=== PATIENT | female | born 1940 | race Caucasian/White ===

== ENCOUNTER 2019-10-02 08:45 | Outpatient (CLI) | payer MEDICARE, SELFPAY ==
[2019-10-02 09:00] LABS: Basophils Absolute Auto 0.05 K/mm3 (0.00-0.10); Basophils Percent Auto 0.8 % (0.0-1.0); Eosinophils Absolute Auto 0.12 K/mm3 (0.02-0.50); Eosinophils Percent Auto 1.8 % (1.0-6.0); Hematocrit 40.4 % (35.0-42.0); Hemoglobin 13.4 g/dL (11.7-13.8); Immature Granulocyte Absolute 0.03 K/mm3 (0.00-0.00); Immature Granulocyte Percent A 0.5 % (0.0-0.0); Lymphocytes Absolute Auto 2.04 K/mm3 (1.10-4.50); Lymphocytes Percent Auto 31.4 % (18.0-42.0); Mean Corpuscular HGB Conc 33.2 g/dL (32.0-36.0); Mean Corpuscular Hemoglobin 29.4 pg (27.0-31.0); Mean Corpuscular Volume 88.6 fL (78.0-102.0); Mean Platelet Volume 9.1 fl (9.2-11.8); Monocytes Absolute Auto 0.38 K/mm3 (0.10-0.90); Monocytes Percent Auto 5.9 % (2.0-11.0); Neutrophils Absolute Auto 3.9 K/mm3 (1.7-7.2); Neutrophils Percent Auto 59.6 % (50.0-70.0); Platelet Count Result 261 K/mm3 (150-420); Red Blood Count 4.56 M/mm3 (4.20-5.40); Red Cell Distribution Width 13.2 % (11.6-14.4); White Blood Count 6.5 K/mm3 (4.8-10.8)
[2019-10-02 10:12] LABS: Alanine Aminotransferase 28 U/L (14-59); Alkaline Phosphatase 79 U/L (46-116); Anion Gap 12.3 mmol/L (7-16); Aspartate Amino Transferase 25 U/L (15-37); Bilirubin,Total 0.4 mg/dL (0.00-1.00); Blood Urea Nitrogen 18 mg/dL (7-18); Calcium 9.4 mg/dL (8.5-10.1); Carbon Dioxide 29 mmol/L (21-32); Chloride 103 mmol/L (98-108); Cholesterol 184 mg/dL (0-200); Estimated Glomerular Filt Rate 38; Glucose 89 mg/dL (70-99); HDL Direct 49 mg/dL (40-60); LDL Cholesterol Calculated 109 mg/dL (<130); Osmolality Calculated 290 mOsm/kg (285-295); Potassium 4.3 mmol/L (3.5-5.1); Sodium 140 mmol/L (136-145); Total Protein 7.2 g/dL (6.4-8.2); Triglycerides 132 mg/dL (0-150)
== END 2019-10-02 08:46 | disposition home or self-care (01) ==
PROVIDERS: PCP Nurse Practitioner Family; Visit Provider Nurse Practitioner Family
DX: E78.5 Hyperlipidemia, unspecified (principal); I10 Essential (primary) hypertension
CPT/HCPCS: 36415; 80053; 80061; 85025

== ENCOUNTER 2019-10-31 08:14 | Outpatient (CLI) | payer MEDICARE, SELFPAY ==
[2019-10-31 09:08] LABS: Anion Gap 9.7 mmol/L (7-16); Blood Urea Nitrogen 14 mg/dL (7-18); Calcium 9.8 mg/dL (8.5-10.1); Carbon Dioxide 31 mmol/L (21-32); Chloride 104 mmol/L (98-108); Estimated Glomerular Filt Rate 38; Glucose 95 mg/dL (70-99); Osmolality Calculated 290 mOsm/kg (285-295); Potassium 4.7 mmol/L (3.5-5.1); Sodium 140 mmol/L (136-145)
== END 2019-10-31 08:15 | disposition home or self-care (01) ==
LOC: CHSLAB 08:15
PROVIDERS: PCP Nurse Practitioner Family; Visit Provider Nurse Practitioner Family
DX: R79.89 Other specified abnormal findings of blood chemistry (principal)
CPT/HCPCS: 36415; 80048

== ENCOUNTER 2019-12-11 07:54 | Outpatient (CLI) | payer MEDICARE, SELFPAY ==
[2019-12-11 10:07] LABS: Anion Gap 9 mmol/L (8-16); Blood Urea Nitrogen 15 mg/dL (7-18); Calcium 9.7 mg/dL (8.5-10.1); Carbon Dioxide 29 mmol/L (21-32); Chloride 104 mmol/L (98-108); Estimated Glomerular Filt Rate 34; Glucose 94 mg/dL (70-99); Osmolality Calculated 294 mOsm/kg (285-295); Potassium 4.5 mmol/L (3.5-5.1); Sodium 142 mmol/L (136-145)
== END 2019-12-11 07:55 | disposition home or self-care (01) ==
LOC: CHSLAB 07:56
PROVIDERS: PCP Nurse Practitioner Family; Visit Provider Nurse Practitioner Family
DX: R79.89 Other specified abnormal findings of blood chemistry (principal)
CPT/HCPCS: 36415; 80048

== ENCOUNTER 2019-12-21 07:01 | Outpatient (CLI) | payer MEDICARE, SELFPAY ==
--- NOTE | ~2019-12-21 | US_ITS ---
EXAMINATION: US retroperitoneal comp DATE: 12/21/2019 08:10 INDICATION: Abnormal results of kidney function test TECHNIQUE: Multiple grayscale and Doppler ultrasound images of the kidneys were obtained. COMPARISON: None. FINDINGS: The right kidney measures 9.0 x 5.0 x 8.1 cm. Cysts of the right kidney upper pole measure up to 2.1 cm. The left kidney measures 8.0 x 5.0 x 5.0 cm. The kidneys demonstrate normal parenchymal echogenicity. There is no hydronephrosis. The bladder is decompressed. IMPRESSION: 1. Normal kidneys without hydronephrosis. Reviewed, dictated and finalized at location A.
[2019-12-21 07:23] LABS: Basophils Absolute Auto 0.04 K/mm3 (0.00-0.10); Basophils Percent Auto 0.7 % (0.0-1.0); Eosinophils Absolute Auto 0.13 K/mm3 (0.02-0.50); Eosinophils Percent Auto 2.2 % (1.0-6.0); Hematocrit 43.5 % (35.0-42.0); Hemoglobin 14.2 g/dL (11.7-13.8); Immature Granulocyte Absolute 0.02 K/mm3 (0.00-0.00); Immature Granulocyte Percent A 0.3 % (0.0-0.0); Lymphocytes Absolute Auto 1.52 K/mm3 (1.10-4.50); Lymphocytes Percent Auto 25.3 % (18.0-42.0); Mean Corpuscular HGB Conc 32.6 g/dL (32.0-36.0); Mean Corpuscular Hemoglobin 29.1 pg (27.0-31.0); Mean Corpuscular Volume 89.1 fL (78.0-102.0); Monocytes Absolute Auto 0.35 K/mm3 (0.10-0.90); Monocytes Percent Auto 5.8 % (2.0-11.0); Neutrophils Percent Auto 65.7 % (50.0-70.0); Platelet Count Result 309 K/mm3 (150-420); Red Blood Count 4.88 M/mm3 (4.20-5.40); Red Cell Distribution Width 12.8 % (11.6-14.4)
[2019-12-21 08:01] LABS: Alanine Aminotransferase 29 U/L (14-59); Albumin Level 4.4 g/dL (3.4-5.0); Anion Gap 8 mmol/L (8-16); Blood Urea Nitrogen 13 mg/dL (7-18); Carbon Dioxide 28 mmol/L (21-32); Chloride 105 mmol/L (98-108); Creatine Kinase 79 U/L (26-192); Estimated Glomerular Filt Rate 35; Glucose 108 mg/dL (70-99); Osmolality Calculated 293 mOsm/kg (285-295); Phosphorus 3.8 mg/dL (2.6-4.7); Potassium 4.2 mmol/L (3.5-5.1); Sodium 141 mmol/L (136-145)
[2019-12-21 08:25] LABS: Erythrocyte Sedimentation Rate 18 mm/hr (0-20)
[2019-12-21 09:59] LABS: Add Urine Microscopic? YES; Appearance Urine Clear (Clear); Bilirubin Urine Negative (Negative); Blood Urine 1+ (Negative); Color Urine Yellow (Yellow); Glucose Urine UA Negative (Negative); Ketones Urine Negative (Negative); Leukocyte Esterase Ur Negative (Negative); Nitrate Urine Negative (Negative); Protein Urine Negative (Negative); Urobilinogen Urine 0.2 mg/dL (0.2-1.0)
[2019-12-21 10:05] LABS: RBC Urine 0-2 /hpf (0-2)
[2019-12-21 10:06] LABS: Bacteria Urine Trace /hpf; Squamous Epithelial Cell Urine Occasional /hpf (Few); WBC Urine 0-3 /hpf (0-3)
[2019-12-21 10:26] LABS: Creatinine Urine 77.63 mg/dL (40-278); Total Protein Urine Random 9.9 mg/dL (0.0-11.9)
[2019-12-25 10:40] LABS: Total Volume 24 Hour Urine 1600 ml
[2019-12-26 13:35] LABS: Complement Total CH50 >60 U/mL (31-60)
[2019-12-26 21:27] LABS: Complement C3 180 mg/dL (83-193)
== END 2019-12-21 07:02 | disposition home or self-care (01) ==
PROVIDERS: PCP Nurse Practitioner Family; Visit Provider Internal Medicine Nephrology
DX: R94.4 Abnormal results of kidney function studies (principal); E78.5 Hyperlipidemia, unspecified
CPT/HCPCS: 36415; 76770; 80069; 81001; 81050; 82550; 82570; 84156; 84460; 84540; 85025; 85652; 86038; 86160; 86162; 86334; 86335

== ENCOUNTER 2020-02-29 07:38 | Outpatient (CLI) | payer MEDICARE, SELFPAY ==
[2020-02-29 07:54] LABS: Creatinine Urine 68.25 mg/dL (40-278); Total Protein Urine Random 10.1 mg/dL (0.0-11.9)
[2020-02-29 08:48] LABS: Anion Gap 9 mmol/L (8-16); Blood Urea Nitrogen 15 mg/dL (7-18); Calcium 9.4 mg/dL (8.5-10.1); Carbon Dioxide 29 mmol/L (21-32); Chloride 103 mmol/L (98-108); Estimated Glomerular Filt Rate 39; Glucose 91 mg/dL (70-99); Osmolality Calculated 292 mOsm/kg (285-295); Phosphorus 3.7 mg/dL (2.6-4.7); Potassium 4.3 mmol/L (3.5-5.1); Sodium 141 mmol/L (136-145)
== END 2020-02-29 07:39 | disposition home or self-care (01) ==
LOC: CHSLAB 07:40
PROVIDERS: PCP Nurse Practitioner Family; Visit Provider Internal Medicine Nephrology
DX: R94.4 Abnormal results of kidney function studies (principal)
CPT/HCPCS: 36415; 80069; 82570; 84156

== ENCOUNTER 2020-06-21 10:09 | Outpatient (NON) | payer MEDICARE, SELFPAY | END 2020-06-21 10:10 | LOC: CHSLAB 10:12 | PROVIDERS: Visit Provider Nurse Practitioner Family | DX: R31.9 Hematuria, unspecified (principal) | CPT/HCPCS: 87086; 87088 ==

== ENCOUNTER 2020-08-22 08:24 | Outpatient (CLI) | payer MEDICARE, SELFPAY ==
[2020-08-22 08:57] LABS: Creatinine Urine 160.62 mg/dL (40-278); Total Protein Urine Random 23.3 mg/dL (0.0-11.9); Ur Ttl Prot Creatinine Ratio 0.15 mg/mg (0-0.20)
[2020-08-22 11:29] LABS: Albumin Level 3.9 g/dL (3.4-5.0); Anion Gap 9 mmol/L (8-16); Blood Urea Nitrogen 17 mg/dL (7-18); Calcium 9.6 mg/dL (8.5-10.1); Carbon Dioxide 29 mmol/L (21-32); Chloride 104 mmol/L (98-108); Estimated Glomerular Filt Rate 36; Glucose 94 mg/dL (70-99); Osmolality Calculated 295 mOsm/kg (285-295); Phosphorus 3.6 mg/dL (2.6-4.7); Potassium 4.5 mmol/L (3.5-5.1); Sodium 142 mmol/L (136-145)
== END 2020-08-22 08:25 | disposition home or self-care (01) ==
LOC: CHSLAB 08:27
PROVIDERS: PCP Nurse Practitioner Family; Visit Provider Internal Medicine Nephrology
DX: N18.32 Chronic kidney disease, stage 3b (principal)
CPT/HCPCS: 36415; 80069; 82570; 84156

== ENCOUNTER 2021-12-31 12:41 | Outpatient (CLI) | payer MEDICARE, SELFPAY ==
[2021-12-31 12:56] LABS: Basophils Absolute Auto 0.05 K/mm3 (0.00-0.10); Basophils Percent Auto 0.6 % (0.0-1.0); Eosinophils Absolute Auto 0.13 K/mm3 (0.02-0.50); Eosinophils Percent Auto 1.5 % (1.0-6.0); Hematocrit 42.9 % (35.0-42.0); Hemoglobin 14.2 g/dL (11.7-13.8); Immature Granulocyte Absolute 0.03 K/mm3 (0.00-0.00); Immature Granulocyte Percent A 0.4 % (0.0-0.0); Lymphocytes Absolute Auto 2.86 K/mm3 (1.10-4.50); Lymphocytes Percent Auto 33.7 % (18.0-42.0); Mean Corpuscular HGB Conc 33.1 g/dL (32.0-36.0); Mean Corpuscular Hemoglobin 29.3 pg (27.0-31.0); Mean Corpuscular Volume 88.5 fL (78.0-102.0); Mean Platelet Volume 9.3 fl (9.2-11.8); Monocytes Absolute Auto 0.47 K/mm3 (0.10-0.90); Monocytes Percent Auto 5.5 % (2.0-11.0); Neutrophils Absolute Auto 4.9 K/mm3 (1.7-7.2); Neutrophils Percent Auto 58.3 % (50.0-70.0); Platelet Count Result 277 K/mm3 (150-420); Red Blood Count 4.85 M/mm3 (4.20-5.40); Red Cell Distribution Width 12.8 % (11.6-14.4); White Blood Count 8.5 K/mm3 (4.8-10.8)
[2021-12-31 13:23] LABS: Alanine Aminotransferase 37 U/L (14-59); Alkaline Phosphatase 88 U/L (46-116); Anion Gap 12 mmol/L (8-16); Aspartate Amino Transferase 24 U/L (15-37); Bilirubin,Total 0.5 mg/dL (0.00-1.00); Blood Urea Nitrogen 17 mg/dL (7-18); Calcium 9.6 mg/dL (8.5-10.1); Carbon Dioxide 25 mmol/L (21-32); Chloride 102 mmol/L (98-108); Cholesterol 196 mg/dL (0-200); Estimated Glomerular Filt Rate 38; Glucose 96 mg/dL (70-99); HDL Direct 47 mg/dL (40-60); LDL Cholesterol Calculated 123 mg/dL (<130); Osmolality Calculated 289 mOsm/kg (285-295); Potassium 3.6 mmol/L (3.5-5.1); Sodium 139 mmol/L (136-145); Total Protein 7.3 g/dL (6.4-8.2); Triglycerides 132 mg/dL (0-150)
== END 2021-12-31 12:42 | disposition home or self-care (01) ==
LOC: CHSLAB 12:44
PROVIDERS: PCP Nurse Practitioner Family; Visit Provider Nurse Practitioner Family
DX: E78.5 Hyperlipidemia, unspecified (principal); I10 Essential (primary) hypertension
CPT/HCPCS: 36415; 80053; 80061; 85025

== ENCOUNTER 2023-03-25 14:36 | Outpatient (CLI) | payer MEDICARE, SELFPAY ==
[2023-03-25 15:02] LABS: Basophils Absolute Auto 0.07 K/mm3 (0.00-0.10); Basophils Percent Auto 0.9 % (0.0-1.0); Eosinophils Percent Auto 1.3 % (1.0-6.0); Hematocrit 44.4 % (35.0-42.0); Hemoglobin 14.7 g/dL (11.7-13.8); Immature Granulocyte Absolute 0.03 K/mm3 (0.00-0.00); Immature Granulocyte Percent A 0.4 % (0.0-0.0); Lymphocytes Absolute Auto 2.44 K/mm3 (1.10-4.50); Lymphocytes Percent Auto 31.6 % (18.0-42.0); Mean Corpuscular HGB Conc 33.1 g/dL (32.0-36.0); Mean Corpuscular Hemoglobin 29.5 pg (27.0-31.0); Mean Corpuscular Volume 89.2 fL (78.0-102.0); Mean Platelet Volume 9.6 fl (9.2-11.8); Monocytes Absolute Auto 0.45 K/mm3 (0.10-0.90); Monocytes Percent Auto 5.8 % (2.0-11.0); Neutrophils Absolute Auto 4.6 K/mm3 (1.7-7.2); Platelet Count Result 271 K/mm3 (150-420); Red Blood Count 4.98 M/mm3 (4.20-5.40); Red Cell Distribution Width 12.9 % (11.6-14.4); White Blood Count 7.7 K/mm3 (4.8-10.8)
[2023-03-25 15:30] LABS: Appearance Urine Slightly Cloudy (Clear); Bilirubin Urine Negative (Negative); Blood Urine 2+ (Negative); Color Urine Light Yellow (Yellow); Glucose Urine UA Negative (Negative); Ketones Urine Trace (Negative); Leukocyte Esterase Ur 3+ LEU/UL (Negative); Nitrate Urine Positive (Negative); Protein Urine 1+ (Negative); Specific Grav Ur >= 1.030 (1.010-1.020); Urobilinogen Urine 0.2 mg/dL (0.2-1.0)
[2023-03-25 15:34] LABS: Add Urine Microscopic? YES; Bacteria Urine 3+ /hpf; Renal Epithelial Cells Urine Few /hpf; Squamous Epithelial Cell Urine Few /hpf (Few); WBC Urine 21-30 /hpf (0-3)
[2023-03-25 15:42] LABS: Alanine Aminotransferase 31 U/L (14-59); Albumin Level 4.4 g/dL (3.4-5.0); Alkaline Phosphatase 75 U/L (46-116); Anion Gap 7 mmol/L (8-16); Aspartate Amino Transferase 22 U/L (15-37); Bilirubin,Total 0.5 mg/dL (0.00-1.00); Blood Urea Nitrogen 16 mg/dL (7-18); Calcium 9.6 mg/dL (8.5-10.1); Carbon Dioxide 30 mmol/L (21-32); Chloride 101 mmol/L (98-108); Cholesterol 273 mg/dL (0-200); Estimated Glomerular Filt Rate 31; Glucose 97 mg/dL (70-99); HDL Direct 51 mg/dL (40-60); LDL Cholesterol Calculated 207 mg/dL (<130); Magnesium 1.8 mg/dL (1.8-2.4); Osmolality Calculated 287 mOsm/kg (285-295); Potassium 3.7 mmol/L (3.5-5.1); Sodium 138 mmol/L (136-145); Total Protein 7.7 g/dL (6.4-8.2); Triglycerides 75 mg/dL (0-150)
[2023-03-28 15:43] LABS: Vitamin D 25 Hydroxy 8 ng/mL (30-100)
== END 2023-03-25 14:37 | disposition home or self-care (01) ==
LOC: CHSLAB 14:40
PROVIDERS: PCP Nurse Practitioner Family; Visit Provider Nurse Practitioner Family
DX: E78.5 Hyperlipidemia, unspecified (principal); R41.3 Other amnesia; I10 Essential (primary) hypertension; R82.90 Unspecified abnormal findings in urine; Z79.899 Other long term (current) drug therapy
CPT/HCPCS: 36415; 80053; 80061; 81001; 82306; 83735; 85025; 87077; 87086; 87088; 87186

== ENCOUNTER 2023-04-06 10:35 | Emergency (ER) | payer MEDICARE, SELFPAY ==
[2023-04-06] VITALS (46 sets, daily range): BP systolic 102–167; BP diastolic 53–121; PULSE 64–77; RESP 12–39; TEMP 36.8–36.9; O2SAT 93–100
--- NOTE | ~2023-04-06 | XR_ITS ---
Portable chest x-ray Comparison: 11/23/2011 Clinical History: Altered mental status Findings: Lungs are clear, without focal consolidation or pleural effusion. Cardiomediastinal silho uette is stable. Bones and soft tissues are unremarkable. Impression: Clear lungs. Reviewed, dictated and finalized at location . NDER RUNNER Impression: Clear lungs.
--- NOTE | ~2023-04-06 | CT_ITS ---
EXAMINATION: CT brain wo con DATE: 04/06/2023 11:20 INDICATION: Altered mental status post fall TECHNIQUE: Computed tomography (CT) of the head was performed without intravenous contrast. Sagittal and coronal reconstructions were performed. The mA was adjusted according to patient size. Iterative reconstruction technique was employed. The dose-length product was 681.00 mGy-cm. COMPARISON: None FINDINGS: No fracture. No acute intracranial hemorrhage, acute infarction or abnormal extra axial fluid collect ion. There is moderate scattered white matter hypoattenuation consistent with chronic small vessel is chemic disease. Symmetric prominence of the sulci and subarachnoid spaces overlying the convexities c onsistent with moderate age-appropriate diffuse cerebral volume loss. Ventricles are normal and symme tric. No mass/mass effect. Changes of bilateral intraocular lens replacement. The orbits, paranasal s inuses and mastoid air cells are normal. Intracranial calcified cerebral atherosclerosis is noted. IMPRESSION: 1. No fracture or acute intracranial process. 2. Age-related changes including moderate diffuse volume loss and moderate scattered white matter hyp oattenuation consistent with chronic small vessel ischemic disease. Reviewed, dictated and finalized at location A. RY CHEF IMPRESSION: 1. No fracture or acute intracranial process. 2. Age-related changes including moderate diffuse volume loss and moderate scat tered white matter hypoattenuation consistent with chronic small vessel ischemi c disease.
--- NOTE | ~2023-04-06 | XR_ITS ---
AP view of the pelvis Clinical history: Pain Findings: No acute fracture or dislocation is seen. Osseous alignment is anatomic. Bilateral hip and SI joint spaces are preserved. Soft tissues are unremarkable. Impression: No significant abnormality is seen. Reviewed, dictated and finalized at location M. DRIVER Impression: No significant abnormality is seen.
--- NOTE | ~2023-04-06 | CT_ITS ---
EXAMINATION: CT chest abdomen pelvis w con DATE: 04/06/2023 13:25 INDICATION: Pain after fall TECHNIQUE: Transaxial computed tomographic images of the chest, abdomen, and pelvis were obtained aft er the administration of 100 cc of Omnipaque 350 intravenous contrast. The dose-length product (DLP) was 1061.67 mGy-cm. Automated exposure control and iterative reconstruction technique were employed. COMPARISON: None FINDINGS: CHEST CT: There is mild dependent atelectasis of the lungs. The lungs are free of focal airspace opacities. No pleural effusion or pneumothorax. Multinodular goiter is noted. There is calcified coronary artery at herosclerosis. No pathologically enlarged thoracic lymph nodes are identified. The heart size is norm al. There is moderate thoracic spondylosis. ABDOMEN/PELVIS CT: There is a small sliding hiatal hernia. The liver is diffusely low in attenuation when compared with the spleen, consistent with hepatic steatosis. There is a 13 mm cyst of the right hepatic lobe. The s pleen, pancreas, gallbladder, and adrenal glands are normal. The dilated common bile duct measures up to 16 mm. There is questionable debris or stones in the distal common bile duct. Cysts of the kidney s measure up to 2 cm on the right. There is calcified atherosclerosis of the aorta and many of the ot her arteries. No pathologically enlarged abdominal or pelvic lymph nodes are identified. There is sig moid predominant colonic diverticulosis. There is questionable mild perisigmoid inflammatory change. There is severe lumbar spondylosis. IMPRESSION: 1. Possible mild sigmoid diverticulitis. 2. Dilation of the common bile duct with possible stones or debris in the distal duct. Recommend gomez elation with liver function tests and consider ERCP or MRCP. 3. No acute findings of the thorax. 4. Diffuse hepatic steatosis. Reviewed, dictated and finalized at location L. MONIA SOLUTION PREPARER IMPRESSION: 1. Possible mild sigmoid diverticulitis. 2. Dilation of the common bile duct with possible stones or debris in the dista l duct. Recommend correlation with liver function tests and consider ERCP or MR CP. 3. No acute findings of the thorax. 4. Diffuse hepatic steatosis.
--- NOTE | 2023-04-06 10:47 | ECG_ITS ---
Measurements Intervals [place] Rate: 66 P: 69 NE: 192 QRS: 15 QRSD: 144 T: 93 QT: 460 QTc: 484 Interpretive Statements SINUS RHYTHM LEFT BUNDLE BRANCH BLOCK [120+ ms QRS DURATION, 80+ ms Q/S IN V1/V2, 85+ ms R IN I/aVL/V5/V6] NO PREVIOUS ECG AVAILABLE FOR COMPARISON Electronically Signed On 04-06-2023 13:21:57 [employer]PENTER [employer]M by Rory Ricketts M.D.
--- NOTE | 2023-04-06 10:53 | ED.GENADULT ---
HPI - General Adult General Chief complaint: Fall Stated complaint: fall Time Seen by Provider: 04/06/23 11:05 History of Present Illness HPI narrative: this is an 82-year-old female presenting ED with chief complaint of fall/AMS. Patient herself does not remember the events that occurred last night. She all she knows that she woke up with her family around her and she was brought to the hospital. She has no physical complaints at this time. Per the family they found patient on the floor of her house covered in feces. She was speaking clearly but not making much sense. For example she said that she was laying on the floor because she was tired and wanted to rest. EMS was called and she was brought to hospital. The last time they had seen the patient was yesterday afternoon. In general the patient's family states that she has been having a steady decline over the last several years. She likely has developing dementia although a formal diagnosis has not been made. Related Data Home Medications Medication Instructions Recorded Confirmed amlodipine 2.5 mg tablet 2.5 mg PO DAILY 04/06/23 04/06/23 escitalopram oxalate 20 mg tablet 10 mg PO DAILY 04/06/23 04/06/23 potassium chloride 10 mEq 10 meq PO DAILY 04/06/23 04/06/23 tablet,extended release Allergies Allergy/AdvReac Type Severity Reaction Status Date / Time nitrofurantoin [Macrobid] Allergy Intermediate unknown Verified 04/06/23 11:05 sulfamethoxazole [Bactrim] Allergy Intermediate stomach Verified 04/06/23 11:05 upset trimethoprim [Bactrim] Allergy Intermediate stomach Verified 04/06/23 11:05 upset PMFSH Past Medical History Medical History (Updated 04/06/23 @ 16:35 by Brian Rowe MD) Benign hypertension Breast cancer, right Depression Generalized anxiety disorder Hyperlipidemia Surgical History Surgical History H/O mastectomy Right breast Social History Social History Smoking status: Never smoker Alcohol intake: never Substance use: never Substance use type: does not use Living arrangements: alone Additional living arrangements comments: , does have 2 children Occupation/Education: retired Gender identity (if verbalized by the patient): Female Spiritual care concerns: No Exam Narrative: APPEARANCE: No apparent distress. polite. AOx2. Head: atraumatic. EYES: EOMI, NOSE: Atraumatic NECK: Trachea midline, supple RESPIRATORY: No increased rate of breathing, CTAB CARDIOVASCULAR: RRR, no peripheral edema ABDOMINAL: Non-distended, soft nontender no guarding rebound no CVA tenderness MUSCULOSKELETAl: No obvious deformities NEURO: Alert. Cranial nerves 2-12 grossly intact. Sensation light touch, motor function cerebellar function intact for 4 extremities. gait exam deferred. NIH is 0. SKIN:: Warm, dry. Normal color, no skin breakdown PSYCHIATRIC: Normal affect Course Vital Signs Vital signs: Vital Signs Temperature 98.5 F 04/06/23 10:35 Pulse Rate 71 04/06/23 10:35 Respiratory Rate 18 04/06/23 10:35 Blood Pressure 167/59 H 04/06/23 10:35 Pulse Oximetry 100 04/06/23 10:35 Oxygen Delivery Room Air 04/06/23 10:35 Temperature 98.3 F 04/06/23 17:45 Pulse Rate 64 04/06/23 17:45 Respiratory Rate 22 H 04/06/23 17:45 Blood Pressure 102/64 04/06/23 17:45 Pulse Oximetry 98 04/06/23 17:45 Oxygen Delivery Room Air 04/06/23 12:19 Medical Decision Making [facility] Narrative Medical decision making narrative: -Course: 82-year-old female found down in her apartment confused. Full sepsis workup was ordered. Initial workup revealed a white blood cell count of 21, Lactic 3.0, and covid+ although no respiratory symptoms. Given her elevated white blood cell count/lack of respiratory symptoms I ordered a CT chest abdomen pelvis to look for other
--- NOTE | 2023-04-06 11:20 | PC.NURSE ---
PERICARE WAS PROVIDED UPON PT ARRIVAL, PT CHANGED INTO GOWN WITH SLIPPER SOCKS PROVIDED AND WARM BLANKET. FAMILY IS NOW AT BEDSIDE, HAS BEEN UPDATED ON STATUS. PT HAS RETURNED FROM CT AND IS AWAITING RESULTS AT THIS TIME. WILL CONTINUE TO MONITOR.
[2023-04-06 11:33] LABS: Glucose Point of Care 119 mg/dl (65-105)
[2023-04-06 11:41] LABS: Hematocrit 38.1 % (35.0-42.0); Mean Corpuscular HGB Conc 34.1 g/dL (32.0-36.0); Mean Corpuscular Hemoglobin 29.8 pg (27.0-31.0); Mean Corpuscular Volume 87.4 fL (78.0-102.0); Mean Platelet Volume 9.4 fl (9.2-11.8); Platelet Count Result 221 K/mm3 (150-420); Red Blood Count 4.36 M/mm3 (4.20-5.40); Red Cell Distribution Width 12.8 % (11.6-14.4)
[2023-04-06 11:46] LABS: White Blood Count 21.8 K/mm3 (4.8-10.8)
--- NOTE | 2023-04-06 11:46 | PC.NURSE ---
Lab reports WBC of 21.8. ERP is aware.
[2023-04-06 11:53] LABS: INR 1.1; Partial Thromboplastin Time 26.5 SEC (23.90-30.70); Prothrombin Time 11.7 Seconds (9.50-12.10)
--- NOTE | 2023-04-06 11:59 | PC.NURSE ---
PT HAS BEEN STRAIGHT CATHED FOR URINE, IV SITE ESTABLISHED. PT DENIES ANY NEEDS OR COMPLAINTS. FAMILY AT BEDSIDE, AWARE OF PLAN OF CARE, THEY DID LEAVE BEDSIDE DURING TX. WILL CONTINUE TO MONITOR.
[2023-04-06 12:03] LABS: Band Neutrophils Percent 0 % (0-6); Lymphocytes Absolute Manual 0.65 K/mm3 (1.1-4.5); Lymphocytes Percent Manual 3 % (18-44); Metamyelocytes Percent 1 %; Monocytes Absolute Manual 0.21 K/mm3 (0.1-0.90); Monocytes Percent Manual 1 % (3-9); Neutrophils Absolute Manual 20.71 K/mm3 (1.7-7.2); Neutrophils Percent Manual 95 % (46-73); Platelet Estimate Adequate (Adequate); Schistocytes None Seen (NORMAL); Total Cells Counted 100
[2023-04-06 12:11] LABS: Alanine Aminotransferase 33 U/L (14-59); Albumin Level 3.6 g/dL (3.4-5.0); Alkaline Phosphatase 56 U/L (46-116); Anion Gap 9 mmol/L (8-16); Aspartate Amino Transferase 38 U/L (15-37); Bilirubin,Total 0.8 mg/dL (0.00-1.00); Blood Urea Nitrogen 18 mg/dL (7-18); Calcium 9.5 mg/dL (8.5-10.1); Carbon Dioxide 30 mmol/L (21-32); Chloride 102 mmol/L (98-108); Estimated CRCL calculation 24 ml/min; Estimated Glomerular Filt Rate 31; Glucose 137 mg/dL (70-99); Osmolality Calculated 295 mOsm/kg (285-295); Potassium 2.7 mmol/L (3.5-5.1); Sodium 141 mmol/L (136-145); Total Protein 7.1 g/dL (6.4-8.2)
[2023-04-06 12:11] LABS: Appearance Urine Clear (Clear); Bilirubin Urine Negative (Negative); Blood Urine 3+ (Negative); Color Urine Yellow (Yellow); Glucose Urine UA Negative (Negative); Ketones Urine 2+ (Negative); Leukocyte Esterase Ur Negative LEU/UL (Negative); Nitrate Urine Negative (Negative); Protein Urine 1+ (Negative); Urobilinogen Urine 0.2 mg/dL (0.2-1.0)
[2023-04-06] MEDS: SODIUM CHLORIDE 0.9% IV 2,000 ML 999 ML IV CONT (12:11)
[2023-04-06 12:12] LABS: Lipase 19 U/L (16-77); Thyroid Stimulating Hormone Reflex 0.26 u/IU/mL (0.36-3.74); Troponin I 24.7 ng/L (0.00-60.4)
[2023-04-06 12:13] LABS: Creatine Kinase 1118 U/L (26-192); Ethanol < 3 mg/dL (0-6)
[2023-04-06 12:21] LABS: Amphetamine Screen Urine Negative (Negative); Barbiturate Screen Urine Negative (Negative); Benzodiazepines Screen Urine Negative (Negative); Cannabinoid Screen Urine Negative (Negative); Cocaine Screen Urine Negative (Negative); Methadone Screen Urine Negative (Negative); Opiate Screen Urine Negative (Negative); Phencyclidine Screen Urine Negative (Negative)
[2023-04-06 12:22] LABS: Add Urine Microscopic? YES; Bacteria Urine Rare /hpf; Squamous Epithelial Cell Urine Rare /hpf (Few); WBC Urine 0-3 /hpf (0-3)
[2023-04-06 12:30] LABS: Free T4 Free Thyroxine Reflex 1.05 ng/dL (0.76-1.46)
[2023-04-06 12:44] LABS: Influenza A QL RT-PCR Negative (Negative); Influenza B QL RT-PCR Negative (Negative); RSV RNA, RT-PCR Negative (Negative); SARS-CoV-2 RNA PCR Positive (Negative)
[2023-04-06] MEDS: PIPERACILLN/TAZ 3.375GM/NS50ML 3.375 GM/50 ML BAG IVPB (13:44)
[2023-04-06] MEDS: POTASSIUM CHLORIDE 20 MEQ ER TABLET 40 MEQ PO (13:53)
[2023-04-06] MEDS: KCL 40 MEQ/D5/0.9% SOD CHL 1,000 ML 100 ML IV CONT (14:07)
[2023-04-06 14:23] LABS: Lactic Acid Reflex 1.8 mmol/L (0.4-2.0)
[2023-04-06] MEDS: VANCOMYCIN 1,750 MG/NS 500 ML 1,750 MG/500 ML BAG 250 MG IVPB (14:23)
[2023-04-06] MEDS: SODIUM CHLORIDE 0.9% IV 1,000 ML 150 ML IV CONT (14:24)
[2023-04-06 14:36] LABS: Reflex Lactic Acid Yes or No Add Lactic
--- NOTE | 2023-04-06 14:37 | PC.NURSE ---
pt continues to deny any complaints. family has been updated. pt is awaiting return call from [place] at this time. ivf and medications are infusing as ordered without difficulty. vss per monitor. will continue to monitor.
--- NOTE | 2023-04-06 16:39 | PC.NURSE ---
SAMM HAS RETURNED CALL, REPORTING SHE WILL RETURN CALL WHEN BED BECOMES AVAILABLE. SONS WERE UPDATED AND LEFT TO GO HOME, TO NOTIFY WITH ROOM NUMBER. PT IS RESTING ON STRETCHER WITH IVF INFUSING WITHOUT DIFFICULTY. WILL CONTINUE TO MONITOR.
--- NOTE | 2023-04-06 16:53 | PC.NURSE ---
PT HAS BEEN ASSIGNED ROOM [address] [facility]. ATTEMPTED TO CALL REPORT, NO RN IS ASSIGNED TO THAT ROOM AT THIS TIME. RN IS TO CALL WHEN THEY ARE ASSIGNED TO OBTAIN REPORT. PT IS RESTING ON STRETCHER, NAD NOTED. WILL CONTINUE TO MONITOR.
--- NOTE | 2023-04-06 18:02 | PC.NURSE ---
NENA CHER WAS UPDATED ON PT STATUS AND TRANSFER
--- NOTE | 2023-04-07 12:24 | PC.NURSE ---
PRELIMINARY BLOOD CULTURE RESULTS X2: NO GROWTH TO DATE
--- NOTE | 2023-04-12 13:19 | PC.NURSE ---
Final blood culture report, no growth after 5 days, no further treatment or action needed.
== END 2023-04-06 18:03 | disposition short-term general hospital (02) ==
PROVIDERS: Emergency Provider Emergency Medicine; PCP Nurse Practitioner Family
DX: R41.82 Altered mental status, unspecified (principal); D72.829 Elevated white blood cell count, unspecified; K83.8 Other specified diseases of biliary tract; M62.82 Rhabdomyolysis; U07.1 COVID-19; E78.5 Hyperlipidemia, unspecified; I10 Essential (primary) hypertension; Z79.899 Other long term (current) drug therapy; Z85.3 Personal history of malignant neoplasm of breast
CPT/HCPCS: 36415; 70450; 71045; 71260; 72170; 74177; 80053; 80307; 81001; 82550; 82948; 83605; 83690; 84439; 84443; 84484; 85025; 85610; 85730; 87040; 87637; 93005; 96361; 96365; 96366; 96367; 96368; 99285; A9270; J2543; J3370; J3480; J7030; Q9967

== ENCOUNTER 2023-04-06 18:52 | Inpatient (IN) | payer MEDICARE, SELFPAY ==
--- NOTE | ~2023-04-06 | MR_ITS ---
EXAMINATION: MR MRCP wo/w con/w 3D wo ind DATE: 04/07/2023 11:53 INDICATION: Dilated common bile duct on CT TECHNIQUE: Magnetic resonance imaging (MRI) of the abdomen was performed without and with intravenous contrast. Sequences included coronal T2-weighted SS-FSE ARC, coronal T2-weighted FS SS-FSE, coronal T2-weighted 2D FS FIESTA, Water:Coronal LAVA-Flex, sagittal T2-weighted SS-FSE ARC, axial SSFSE ARC, axial 3D DualEcho, axial DWI B=600, axial T1-weighted LAVA, FAT:Coronal LAVA-Flex, and coronal in and opposed phase LAVA-Flex. Thick-slab T2-weighted FRFSE-XL images were obtained for magnetic resonance cholangiopancreatography (MRCP). Maximum intensity projection 3-D reconstructions of the volumetric data were created by the technologist. Postcontrast sequences included a time course of axial T1-weig hted LAVA, FAT:Coronal LAVA-Flex, coronal in and opposed phase LAVA-Flex, and Water:Coronal LAVA-Flex . COMPARISON: CT from yesterday CONTRAST: Multihance, 15 cc FINDINGS: ABDOMEN MRI: There is loss of hepatic parenchymal signal on opposed phase imaging, consistent with he patic steatosis. There is a 1.3 cm cyst of the right hepatic lobe. The spleen, pancreas, gallbladder, and adrenal glands are normal. Cysts of the kidneys measure up to 2.1 cm on the right. The pancreas is unremarkable. Although limited by respiratory motion artifact, no abnormal enhancement is identifi ed after contrast administration. There are no pathologically enlarged abdominal lymph nodes. No dila zandra loops of bowel are identified. A small amount of inflammatory fluid is seen near the sigmoid colo n. ABDOMEN MRCP: Respiratory motion artifact limits the MRCP sequences. The common bile duct is dilated measuring up to 1.5 cm. No definite stones or stricture of the common bile duct are identified. The p ancreatic duct is normal in course and caliber. IMPRESSION: 1. Dilated common bile duct without definite stones or stricture identified. 2. Diffuse hepatic steatosis. 3. Probable mild sigmoid diverticulitis Reviewed, dictated and finalized at location B. 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
--- NOTE | ~2023-04-06 | MR_ITS ---
EXAMINATION: MR brain/brain stem wo con DATE: 04/08/2023 12:46 INDICATION: Altered mental status TECHNIQUE: Magnetic resonance imaging (MRI) of the brain and brainstem was performed without intraven ous contrast. Sequences included sagittal and axial T1-weighted SE, axial diffusion-weighted FS SE, a xial 3D SWAN, axial T2-weighted FLAIR, and axial T2-weighted FSE. Apparent diffusion coefficient (ADC ) maps were created. COMPARISON: Head CT dated 04/06/2023 FINDINGS: There are no areas of restricted diffusion to suggest acute infarction. No intracranial hemorrhage or abnormal intracranial mass lesion. Extensive scattered areas of nonspecific increased T2-weighted si gnal intensity in the cerebral white matter, predominantly involving the deep and periventricular whi te matter. There are no intraparenchymal signal abnormalities seen on the other pulse sequences. Symm etric prominence of the sulci and ventricles consistent with moderate age-appropriate diffuse cerebra l volume loss. There are no abnormal extra-axial fluid collections. Flow voids are seen in the cerebr al arteries on the T2-weighted sequences consistent with their expected patency. Scattered mucosal th ickening the paranasal sinuses with small amount of posterior layering fluid in the bilateral maxilla ry sinuses. Changes of bilateral intraocular lens replacement. Visualized orbits and soft tissues are otherwise unremarkable. IMPRESSION: 1. No acute intracranial process. 2. Age-related changes including moderate diffuse volume loss and extensive nonspecific scattered whi te matter T2 hyperintensity which is within normal limits for age and likely sequela of chronic small vessel ischemic disease. 3. Sinus disease with layering fluid in the bilateral maxillary sinuses suggesting acute sinusitis. Reviewed, dictated and finalized at location A. TROMEDICAL SERVICE ENGINEER IMPRESSION: 1. No acute intracranial process. 2. Age-related changes including moderate diffuse volume loss and extensive non specific scattered white matter T2 hyperintensity which is within normal limits for age and likely sequela of chronic small vessel ischemic disease. 3. Sinus disease with layering fluid in the bilateral maxillary sinuses suggest ing acute sinusitis.
[2023-04-06 18:58] VITALS: BP 151/89; PULSE 71; RESP 18; TEMP 36.4; O2SAT 100
--- NOTE | 2023-04-06 19:01 | ADMGEN ---
This patient, Sigifredo Copeland, was admitted to [facility] Surg Room 333-01. Patient/family oriented to hospital policies and general routines including ID bracelet, bed and alarms, visiting hours, pain management, procedures, bathroom and other care routines, personal items, smoking policy, room service/diet, and visiting hours. Information on how to activate the Rapid Response Team has been discussed. Patient/Family are encouraged to report perceived risks to care and to ask questions if they do not understand what they are told or what they should do.
[2023-04-06 20:00] VITALS: PULSE 71; RESP 18; O2SAT 100; BMI 25.8
--- NOTE | 2023-04-06 21:16 | PM.IMHP ---
H&P: HPI History of Present Illness Date/Time: 04/06/23 21:16 Chief Complaint: AMS Narrative: THIS IS AN 82-YEAR-OLD FEMALE WITH PAST MEDICAL HISTORY SIGNIFICANT FOR HYPERTENSION, PATIENT WAS BROUGHT TO THE EMERGENCY ROOM AFTER SHE WAS FOUND ON THE FLOOR AT HER HOUSE BY HER FAMILY. PATIENT DOES NOT HAVE RECOLLECTION OF EVENTS AND IS UNABLE TO GIVE ANY HISTORY. EXAMINATION: CT chest abdomen pelvis w con DATE: 04/06/2023 13:25 INDICATION: Pain after fall TECHNIQUE: Transaxial computed tomographic images of the chest, abdomen, and pelvis were obtained after the administration of 100 cc of Omnipaque 350 intravenous contrast. The dose-length product (DLP) was 1061.67 mGy-cm. Automated exposure control and iterative reconstruction technique were employed. COMPARISON: None FINDINGS: CHEST CT: There is mild dependent atelectasis of the lungs. The lungs are free of focal airspace opacities. No pleural effusion or pneumothorax. Multinodular goiter is noted. There is calcified coronary artery atherosclerosis. No pathologically enlarged thoracic lymph nodes are identified. The heart size is normal. There is moderate thoracic spondylosis. ABDOMEN/PELVIS CT: There is a small sliding hiatal hernia. The liver is diffusely low in attenuation when compared with the spleen, consistent with hepatic steatosis. There is a 13 mm cyst of the right hepatic lobe. The spleen, pancreas, gallbladder, and adrenal glands are normal. The dilated common bile duct measures up to 16 mm. There is questionable debris or stones in the distal common bile duct. Cysts of the kidneys measure up to 2 cm on the right. There is calcified atherosclerosis of the aorta and many of the other arteries. No pathologically enlarged abdominal or pelvic lymph nodes are identified. There is sigmoid predominant colonic diverticulosis. There is questionable mild perisigmoid inflammatory change. There is severe lumbar spondylosis. IMPRESSION: 1. Possible mild sigmoid diverticulitis. 2. Dilation of the common bile duct with possible stones or debris in the distal duct. Recommend correlation with liver function tests and consider ERCP or MRCP. 3. No acute findings of the thorax. 4. Diffuse hepatic steatosis. Portable chest x-ray Comparison: 11/23/2011 Clinical History: Altered mental status Findings:? Lungs are clear, without focal consolidation or pleural effusion.? Cardiomediastinal silhouette is stable. Bones and soft tissues are unremarkable. ? Impression: ? Clear lungs. EXAMINATION: CT brain wo con DATE: 04/06/2023 11:20 INDICATION: Altered mental status post fall TECHNIQUE: Computed tomography (CT) of the head was performed without intravenous contrast. Sagittal and coronal reconstructions were performed. The mA was adjusted according to patient size. Iterative reconstruction technique was employed. The dose-length product was 681.00 mGy-cm. COMPARISON: None FINDINGS: No fracture. No acute intracranial hemorrhage, acute infarction or abnormal extra axial fluid collection. There is moderate scattered white matter hypoattenuation consistent with chronic small vessel ischemic disease. Symmetric prominence of the sulci and subarachnoid spaces overlying the convexities consistent with moderate age-appropriate diffuse cerebral volume loss. Ventricles are normal and symmetric. No mass/mass effect. Changes of bilateral intraocular lens replacement. The orbits, paranasal sinuses and mastoid air cells are normal. Intracranial calcified cerebral atherosclerosis is noted. IMPRESSION: 1. No fracture or acute intracranial process. 2. Age-related changes including moderate diffuse volume loss and moderate scattered white matter hypoattenuation consistent with chronic small vessel ischemic disease. Review of Systems Review of Systems: ROS unobtainable: Yes unobtainable due to mental status (Lethargy) [facility] Past Medical History Medical History (Updated 04/09/23 @ 13:13 by Dariela
[2023-04-06 22:08] LABS: Creatine Kinase 1193 U/L (30-135)
[2023-04-06 22:09] LABS: Alanine Aminotransferase 25 U/L (6-35); Albumin Level 3.4 g/dL (3.5-5.1); Alkaline Phosphatase 56 U/L (38-126); Anion Gap 8 mmol/L (8-16); Aspartate Amino Transferase 58 U/L (14-36); Bilirubin,Total 0.6 mg/dL (0.2-1.3); Blood Urea Nitrogen 16 mg/dL (7-17); Calcium 8.8 mg/dL (8.4-10.2); Carbon Dioxide 20 mmol/L (22-30); Chloride 112 mmol/L (98-107); Estimated CRCL calculation 37 ml/min; Estimated Glomerular Filt Rate 53; Glucose 100 mg/dL (65-110); Magnesium 1.6 mg/dL (1.6-2.3); Potassium 3.7 mmol/L (3.4-5.0); Sodium 140 mmol/L (137-145)
[2023-04-06 22:15] VITALS: BP 147/51; PULSE 72; RESP 16; TEMP 36.5; O2SAT 95
[2023-04-07] VITALS (10 sets, daily range): BP systolic 147–177; BP diastolic 62–90; PULSE 61–74; RESP 16–20; TEMP 35.8–36.3; O2SAT 96–98
[2023-04-07 05:49] LABS: Basophils Percent Auto 0.2 % (0.2-1.2); Eosinophils Absolute Auto 0.5 K/mm3 (0-0.3); Eosinophils Percent Auto 3.2 % (0-4.4); Hematocrit 36.3 % (37.0-47.0); Hemoglobin 11.8 g/dL (12.0-15.0); Immature Granulocyte Absolute 0.11 K/mm3 (0.00-0.031); Immature Granulocyte Percent A 0.7 % (0-0.5); Lymphocytes Absolute Auto 1.79 K/mm3 (0.9-3.2); Lymphocytes Percent Auto 11.6 % (18.3-44.2); Mean Corpuscular HGB Conc 32.5 g/dl (32-36); Mean Corpuscular Hemoglobin 29.1 pg (26-34); Mean Corpuscular Volume 89.4 fl (80-100); Mean Platelet Volume 9.6 fl (7.4-10.4); Monocytes Absolute Auto 0.7 K/mm3 (0.1-0.6); Monocytes Percent Auto 4.5 % (2.6-8.5); Neutrophils Absolute Auto 12.3 K/mm3 (1.3-6.7); Neutrophils Percent Auto 79.8 % (45.5-73.1); Platelet Count Result 198 k/mm3 (150-375); Red Blood Count 4.06 M/mm3 (4.2-5.4); Red Cell Distribution Width 13.6 % (11.5-14.5); White Blood Count 15.4 K/mm3 (4.5-10.0)
[2023-04-07] MEDS: HEPARIN SODIUM 5,000 UNITS/ML VIAL 5000 UNITS SUB-Q ×2 (09:58→20:35)
[2023-04-07] MEDS: atenoloL 50 MG TABLET PO ×2 (12:13→20:35)
[2023-04-07] MEDS: lisinopriL 10 MG TABLET PO (12:13)
[2023-04-07] MEDS: ESCITALOPRAM OXALATE 10 MG TABLET PO (12:13)
[2023-04-07] MEDS: amLODIPine BESYLATE 2.5 MG TABLET PO (12:14)
--- NOTE | 2023-04-07 13:11 | WPDGICN ---
Assessment and Plan Assessment and plan (1) Abnormal CT scan: Code(s): R93.89 - Abnormal findings on diagnostic imaging of other specified body structures Status: Acute Assessment and Plan: CT scan reveals a dilated common bile duct this is confirmed by MRCP but no evidence of gallstones. Likely physiologic. She has normal liver function test. No additional workup felt warranted at this time. Advance diet as tolerated. Disposition per others. (2) COVID: Code(s): U07.1 - COVID-19 Status: Acute Assessment and Plan: Patient found to have active COVID infection. This likely accounts for a leukocytosis. Plan for continued supportive care and treatment as directed by primary care service. (3) Poor short term memory: Code(s): R41.3 - Other amnesia Status: Acute Assessment and Plan: Patient has poor short-term memory. Likely this is related to early dementia. (4) Rhabdomyolysis due to COVID-19: Code(s): U07.1 - COVID-19; M62.82 - Rhabdomyolysis Status: Acute Assessment and Plan: Elevated CPK noted consistent with rhabdomyolysis. Potentially related to her COVID infection. GI Consult Note Consult date/time: 04/07/23 13:11 Reason for consult: Abnormal CT scan HPI: Sigifredo Copeland is a 82 year old female I am asked to see because of abnormal CT scan patient has an underlying history of dementia. She apparently experienced a fall at home and was taken to the emergency room in [place] yesterday. In the ER she was noted to have elevated white count. WBC [id number]. For this reason a CT scan was performed. CT scan revealed a dilated common bile duct. The LFTs were noted to be normal. At [place] they were unable to perform either HIDA scan or an MRCP and patient was transferred to our institution for this. Patient has dementia and is unable to give a thorough history. She denies abdominal pain. Apparently has been eating well. Investigation has revealed that she now has COVID. Patient currently comfortable and anxious to go home. MRCP performed today reveals no evidence gallstones or obstruction the bile duct but it is somewhat dilated. Review of Systems Review of Systems: Review of systems noncontributory. [facility] Past Medical History Medical History (Updated 04/07/23 @ 13:14 by Juanito Hodge MD) Benign hypertension Breast cancer, right Depression Generalized anxiety disorder Hyperlipidemia Surgical History Surgical History H/O mastectomy Right breast Social History Social History Smoking status: Never smoker Alcohol intake: never Substance use: never Substance use type: does not use Living arrangements: alone Additional living arrangements comments: , does have 2 children Occupation/Education: retired Gender identity (if verbalized by the patient): Female Spiritual care concerns: No Meds Home Medications and Allergies Home Medications Medication Instructions Recorded Confirmed Type atenolol 50 mg tablet 50 mg PO BID #180 tabs 03/25/23 04/06/23 Rx lisinopril 10 mg tablet 10 mg PO DAILY #90 tabs 03/25/23 04/06/23 Rx cholecalciferol (vitamin D3) 1,250 1,250 mcg PO WEEKLY #12 caps 03/29/23 04/06/23 Rx mcg (50,000 unit) capsule amlodipine 2.5 mg tablet 2.5 mg PO DAILY 04/06/23 04/06/23 History escitalopram oxalate 20 mg tablet 10 mg PO DAILY 04/06/23 04/06/23 History potassium chloride 10 mEq 10 meq PO DAILY 04/06/23 04/06/23 History tablet,extended release Allergies Allergy/AdvReac Type Severity Reaction Status Date / Time nitrofurantoin [Macrobid] Allergy Intermediate unknown Verified 04/06/23 11:05 sulfamethoxazole [Bactrim] Allergy Intermediate stomach Verified 04/06/23 11:05 upset trimethoprim [Bactrim] Allergy Intermediate stomach Verified 04/06/23 11:05 upset
--- NOTE | 2023-04-07 13:46 | PM.IMPN ---
Progress Note: A&P Assessment and Plan (1) COVID: Code(s): U07.1 - COVID-19 Status: Acute Assessment and Plan: non-symptomatic, positive on admission supportive care Chest x-ray negative (2) Altered mental status: Code(s): R41.82 - Altered mental status, unspecified Status: Chronic Assessment and Plan: CT head negative for CVA, showed age-related changes including moderate diffuse volume loss and moderate scattered white matter hypoattenuation consistent with chronic small vessel ischemic disease. Neurology consulted pending UA negative (3) Fall: Code(s): W19.XXXA - Unspecified fall, initial encounter Status: Inactive Assessment and Plan: No acute fractures Fall precautions PT/OT ordered for eval and d/c planning as she currently lives alone (4) Leukocytosis: Code(s): D72.829 - Elevated white blood cell count, unspecified Status: Inactive Assessment and Plan: likely related to covid infection Continue to monitor (5) Generalized anxiety disorder: Code(s): F41.1 - Generalized anxiety disorder Status: Chronic Assessment and Plan: continue home Lexapro (6) Common bile duct dilation: Code(s): K83.8 - Other specified diseases of biliary tract Status: Inactive Assessment and Plan: GI consulted - MRCP today showed dilated common bile duct without definite stones or stricture identified. advance diet to low fat Subjective Date/time seen: 04/07/23 13:46 Interval history: Patient is sitting up reading her Bible at exam this morning in no acute distress. She would like to go home. She is alert to self only and discussed that her family would like us to take care of her here right now. She does not remember the reason she is here. She is denying any symptoms or pain. GI cleared her as her MRCP did not show any active stones. Will advance to low fat diet. Neurology consulted as she likely has dementia that has not been diagnosed or evaluated yet. Review of Systems Review of Systems: All systems reviewed & are unremarkable except as noted in HPI and below Exam Narrative: APPEARANCE: No apparent distress. AOx1. Head: atraumatic. EYES: EOMI, PERRLA NECK: Trachea midline, supple RESPIRATORY: lung sounds clear to auscultation. CARDIOVASCULAR: RRR. ABDOMINAL: Non-distended, soft, nontender. BS present. MUSCULOSKELETAl: No obvious deformities. No edema. NEURO: Alert to self only. Cranial nerves 2-12 grossly intact. SKIN:: Warm, dry. No wounds. PSYCHIATRIC: Normal affect. No SI. Objective Data Vital Signs Vital Signs: Vital Signs - 24 hr 04/06/23 18:58 04/06/23 20:00 04/06/23 22:15 Temperature 97.6 F 97.7 F Pulse Rate 71 71 72 Respiratory Rate 18 18 16 Blood Pressure 151/89 H 147/51 H Pulse Oximetry 100 100 95 Oxygen Delivery Room Air 04/07/23 00:00 04/07/23 04:00 04/07/23 06:45 Temperature 96.9 F L Pulse Rate 64 64 61 Respiratory Rate 20 Blood Pressure 147/62 H Pulse Oximetry 97 Oxygen Delivery 04/07/23 12:13 Temperature Pulse Rate 68 Respiratory Rate Blood Pressure Pulse Oximetry Oxygen Delivery Intake/Output Intake/Output: Intake & Output 04/04/23 04/05/23 04/06/23 04/07/23 23:59 23:59 23:59 23:59 Intake Total 50 Balance 50 Meds/Results Medications: Active Medications Generic Name Dose Route Start Last Admin Trade Name Freq PRN Reason Stop Dose Admin Acetaminophen 650 mg 04/06/23 21:31 Acetaminophen 325 Mg Tablet PO Q4H PRN Mild Pain (1-3) or Fever Amlodipine Besylate 2.5 mg 04/07/23 09:00 04/07/23 12:14 Amlodipine Besylate 2.5 Mg Tablet PO 2.5 mg DAILY ANI Administration Atenolol 50 mg 04/07/23 09:00 04/07/23 12:13 Atenolol 50 Mg Tablet PO 50 mg Q12HR ANI Administration Ergocalciferol 50,000 units 04/07/23 09:00 Ergocalciferol 50,000 Units Capsule
[2023-04-07] MEDS: POTASSIUM CHLORIDE 10 MEQ ER TABLET PO (14:12)
[2023-04-07] MEDS: ACETAMINOPHEN 325 MG TABLET 650 MG PO (20:35)
[2023-04-08] VITALS (10 sets, daily range): BP systolic 147–169; BP diastolic 55–88; PULSE 55–69; RESP 16–20; TEMP 35.7–36.9; O2SAT 98–100
[2023-04-08 06:30] LABS: Basophils Percent Auto 0.3 % (0.2-1.2); Eosinophils Absolute Auto 0.5 K/mm3 (0-0.3); Eosinophils Percent Auto 4.6 % (0-4.4); Hematocrit 39.4 % (37.0-47.0); Hemoglobin 12.5 g/dL (12.0-15.0); Immature Granulocyte Absolute 0.06 K/mm3 (0.00-0.031); Immature Granulocyte Percent A 0.6 % (0-0.5); Lymphocytes Absolute Auto 1.26 K/mm3 (0.9-3.2); Lymphocytes Percent Auto 12.7 % (18.3-44.2); Mean Corpuscular HGB Conc 31.7 g/dl (32-36); Mean Corpuscular Hemoglobin 28.7 pg (26-34); Mean Corpuscular Volume 90.6 fl (80-100); Mean Platelet Volume 9.7 fl (7.4-10.4); Monocytes Absolute Auto 0.5 K/mm3 (0.1-0.6); Monocytes Percent Auto 5.1 % (2.6-8.5); Neutrophils Absolute Auto 7.6 K/mm3 (1.3-6.7); Neutrophils Percent Auto 76.7 % (45.5-73.1); Platelet Count Result 213 k/mm3 (150-375); Red Blood Count 4.35 M/mm3 (4.2-5.4); Red Cell Distribution Width 13.4 % (11.5-14.5); White Blood Count 9.9 K/mm3 (4.5-10.0)
[2023-04-08 06:44] LABS: Anion Gap 8 mmol/L (8-16); Blood Urea Nitrogen 12 mg/dL (7-17); Calcium 8.6 mg/dL (8.4-10.2); Carbon Dioxide 24 mmol/L (22-30); Chloride 107 mmol/L (98-107); Estimated CRCL calculation 41 ml/min; Estimated Glomerular Filt Rate 60; Glucose 103 mg/dL (65-110); Potassium 3.2 mmol/L (3.4-5.0); Sodium 139 mmol/L (137-145)
[2023-04-08] MEDS: amLODIPine BESYLATE 2.5 MG TABLET PO (09:41)
[2023-04-08] MEDS: lisinopriL 10 MG TABLET PO (09:41)
[2023-04-08] MEDS: atenoloL 50 MG TABLET PO ×2 (09:41→20:36)
[2023-04-08] MEDS: POTASSIUM CHLORIDE 10 MEQ ER TABLET PO (09:41)
[2023-04-08] MEDS: HEPARIN SODIUM 5,000 UNITS/ML VIAL 5000 UNITS SUB-Q ×2 (09:41→20:36)
[2023-04-08] MEDS: ESCITALOPRAM OXALATE 10 MG TABLET PO (09:41)
--- NOTE | 2023-04-08 10:15 | WPDNEURCNPN ---
Assessment and Plan Assessment and plan (1) Altered mental status: Code(s): R41.82 - Altered mental status, unspecified Status: Chronic (2) B12 deficiency: Code(s): E53.8 - Deficiency of other specified B group vitamins Status: Acute (3) Cognitive decline: Code(s): R41.89 - Other symptoms and signs involving cognitive functions and awareness Status: Acute Plan Sigifredo Copeland is a 82 year old female with a history of HTN, HLD, anxiety, and breast cancer who presented after being found down. Family has reported concerned regarding cognitive decline. She is having mostly difficulty with short term memory based on history provided by her son. She lives alone and for the most part takes care of herself and her home very well. MRI brain showed moderate diffuse volume loss, which may be indicative of more of an Alzheimer's type picture. However, her B12 level was quite low at 189, which could also be the cause of her cognitive issues. - Recommend starting Vitamin B12 1000mcg daily - Plan to follow-up in Neurology clinic in about 3-4 months - I discussed with son that I did not think it was safe for patient to be living alone at this time - From a neurological standpoint, she is okay to be discharged Consult date: 04/08/23 Reason for consult: Dementia HPI: Sigirfedo Copeland is a 82 year old female with a history of HTN, HLD, anxiety, and breast cancer who presented after being found down. Patient lives alone, but family checks on her. On day of presentation, they found her on the floor, covered with feces. Patient does not have any recollection of falling. She said that she was laying on the floor because she was tired and wanted to rest. EMS was called and she was taken to [place] ED. Family has had concerned regarding her mental status, and report that her cognition has declined over the years. In the ED, her CT head showed moderate, diffuse volume loss. Her WBC was elevated to 21 and she was noted to be COVID positive. Lactic acid was elevated at 3. CT AP was obtained to evaluate for etiology of leukocytosis. She was found to have dilated command bile duct. She underwent MRCP with GI -- no stones noted. I spoke with her son. Patients cognitive issues started a couple of years ago. They noticed that she was more repetitive when she spoke. Over the past year, she has needed frequent reminding of things. For example she was told that she was going to her son's house for Thanksgiving (on day), and by the time she got to her son's house, she did not know why she was there. Son reports that her prison memory is very good. She lives alone and her house is 'immaculate'; she is able to care for herself very well. As mentioned above, she lives along, but her family checks on her quite frequently. Son denies any concerns for depression or hallucinations. Although at one point, she confused her son for her (who in 2019). MRI brain shows moderate diffuse volume loss. B12 level is low at 189. Folate and TSH levels are normal. Review of Systems Review of Systems: All systems reviewed & are unremarkable except as noted in HPI and below PMFSH Past Medical History Medical History (Updated 04/08/23 @ 15:56 by Iva Wu MD) Benign hypertension Breast cancer, right Depression Generalized anxiety disorder Hyperlipidemia Surgical History Surgical History H/O mastectomy Right breast Social History Social History Smoking status: Never smoker Alcohol intake: never Substance use: never Substance use type: does not use Living arrangements: alone Additional living arrangements comments: , does have 2 children Occupation/Education: retired Gender identity (if verbalized by the patient): Female Spiritual care concerns: No Meds Home Medications and Allerg
[2023-04-08 12:16] LABS: Thyroid Stimulating Hormone Reflex 0.735 uIU/mL (0.465-4.68)
[2023-04-08 13:01] LABS: Folic Acid 9.5 ng/mL (2.76->20)
--- NOTE | 2023-04-08 15:34 | PM.IMPN ---
Progress Note: A&P Assessment and Plan (1) COVID: Code(s): U07.1 - COVID-19 Status: Acute Assessment and Plan: non-symptomatic, positive on admission supportive care Chest x-ray negative (2) Altered mental status: Code(s): R41.82 - Altered mental status, unspecified Status: Chronic Assessment and Plan: CT head negative for CVA, showed age-related changes including moderate diffuse volume loss and moderate scattered white matter hypoattenuation consistent with chronic small vessel ischemic disease. Neurology consulted MRI brain today showed no acute process, age related changes BC pending UA negative (3) Fall: Code(s): W19.XXXA - Unspecified fall, initial encounter Status: Inactive Assessment and Plan: No acute fractures Fall precautions PT/OT ordered for eval and d/c planning as she currently lives alone (4) Leukocytosis: Code(s): D72.829 - Elevated white blood cell count, unspecified Status: Inactive Assessment and Plan: likely related to covid infection Continue to monitor (5) Generalized anxiety disorder: Code(s): F41.1 - Generalized anxiety disorder Status: Chronic Assessment and Plan: continue home Lexapro (6) Common bile duct dilation: Code(s): K83.8 - Other specified diseases of biliary tract Status: Inactive Assessment and Plan: GI consulted - MRCP today showed dilated common bile duct without definite stones or stricture identified. tolerating low fat diet Subjective Date/time seen: 04/08/23 15:34 Interval history: Patient is lying in bed comfortably this morning in no acute distress. She is denying any symptoms or pain. GI cleared her as her MRCP did not show any active stones. Neurology consulted as she likely has dementia that has not been diagnosed or evaluated yet. MRI done today showing no acute process or changes. Care coordination on board for d/c planning. Review of Systems Review of Systems: All systems reviewed & are unremarkable except as noted in HPI and below Exam Narrative: APPEARANCE: No apparent distress. AOx1. Head: atraumatic. EYES: EOMI, PERRLA NECK: Trachea midline, supple RESPIRATORY: lung sounds clear to auscultation. CARDIOVASCULAR: RRR. ABDOMINAL: Non-distended, soft, nontender. BS present. MUSCULOSKELETAl: No obvious deformities. No edema. NEURO: Alert to self only. Cranial nerves 2-12 grossly intact. SKIN:: Warm, dry. No wounds. PSYCHIATRIC: Normal affect. No SI. Objective Data Vital Signs Vital Signs: Vital Signs - 24 hr 04/07/23 15:50 04/07/23 16:00 04/07/23 20:00 Temperature Pulse Rate 74 69 Respiratory Rate Blood Pressure Pulse Oximetry Oxygen Delivery Room Air 04/07/23 20:00 04/07/23 22:35 04/08/23 02:13 Temperature 96.4 F L Pulse Rate 69 64 69 Respiratory Rate 16 18 Blood Pressure 177/62 H 169/88 H Pulse Oximetry 97 96 Oxygen Delivery Room Air 04/08/23 00:00 04/08/23 04:00 04/08/23 05:10 Temperature 98.5 F Pulse Rate 55 L 60 68 Respiratory Rate 20 Blood Pressure 147/58 H Pulse Oximetry 100 Oxygen Delivery 04/08/23 08:00 04/08/23 08:00 04/08/23 14:00 Temperature 98 F Pulse Rate 68 68 62 Respiratory Rate 20 16 Blood Pressure 167/70 H Pulse Oximetry 100 100 Oxygen Delivery Room Air Intake/Output Intake/Output: Intake & Output 04/05/23 04/06/23 04/07/23 04/08/23 23:59 23:59 23:59 23:59 Intake Total 410 50 Balance 410 50 Meds/Results Medications: Active Medications Generic Name Dose Route Start Last Admin Trade Name Freq PRN Reason Stop Dose Admin Acetaminophen 650 mg 04/06/23 21:31 04/07/23 20:35 Acetaminophen 325 Mg Tablet PO 650 mg Q4H PRN Administration Mild Pain (1-3) or Fever Amlodipine Besylate 2.5 mg 04/07/23 09:00 04/08/23 09:41 Amlodipine Besylate 2.5 Mg Tablet PO 2.5 mg DA
[2023-04-09] VITALS: PULSE 52
[2023-04-09 04:00] VITALS: PULSE 48
[2023-04-09 04:57] VITALS: BP 155/72; PULSE 61; RESP 16; TEMP 36.2; O2SAT 99
[2023-04-09 07:27] LABS: Hematocrit 37.3 % (37.0-47.0); Hemoglobin 12.5 g/dL (12.0-15.0); Mean Corpuscular HGB Conc 33.5 g/dl (32-36); Mean Corpuscular Hemoglobin 28.9 pg (26-34); Mean Corpuscular Volume 86.3 fl (80-100); Mean Platelet Volume 9.8 fl (7.4-10.4); Platelet Count Result 222 k/mm3 (150-375); Red Blood Count 4.32 M/mm3 (4.2-5.4); White Blood Count 5.6 K/mm3 (4.5-10.0)
[2023-04-09 07:38] LABS: Anion Gap 6 mmol/L (8-16); Blood Urea Nitrogen 8 mg/dL (7-17); Calcium 8.5 mg/dL (8.4-10.2); Carbon Dioxide 26 mmol/L (22-30); Chloride 105 mmol/L (98-107); Estimated CRCL calculation 41 ml/min; Estimated Glomerular Filt Rate 60; Glucose 81 mg/dL (65-110); Potassium 2.8 mmol/L (3.4-5.0); Sodium 137 mmol/L (137-145)
--- NOTE | 2023-04-09 07:57 | PC.NURSE ---
[facility] results called to provider.
[2023-04-09 08:00] VITALS: PULSE 61; RESP 16; O2SAT 99
[2023-04-09] MEDS: POTASSIUM CHLORIDE 20 MEQ ER TABLET PO (08:40)
[2023-04-09] MEDS: POTASSIUM CHLORIDE INJ 40 MEQ in SODIUM CHLORIDE 0.9% IV 500 ML 130 MEQ IVPB (08:40)
[2023-04-09] MEDS: CYANOCOBALAMIN 1,000 MCG TABLET 1000 MCG PO (08:40)
[2023-04-09] MEDS: amLODIPine BESYLATE 2.5 MG TABLET PO (08:40)
[2023-04-09] MEDS: lisinopriL 10 MG TABLET PO (08:40)
[2023-04-09] MEDS: atenoloL 50 MG TABLET PO (08:40)
[2023-04-09] MEDS: ESCITALOPRAM OXALATE 10 MG TABLET PO (08:40)
[2023-04-09] MEDS: HEPARIN SODIUM 5,000 UNITS/ML VIAL 5000 UNITS SUB-Q (08:40)
--- NOTE | 2023-04-09 13:11 | PM.IMPN ---
Progress Note: A&P Assessment and Plan (1) COVID: Code(s): U07.1 - COVID-19 Status: Acute Assessment and Plan: non-symptomatic, positive on admission supportive care Chest x-ray negative (2) Altered mental status: Code(s): R41.82 - Altered mental status, unspecified Status: Chronic Assessment and Plan: CT head negative for CVA, showed age-related changes including moderate diffuse volume loss and moderate scattered white matter hypoattenuation consistent with chronic small vessel ischemic disease. Neurology consulted - agrees patient not safe to return home on her own MRI brain today showed no acute process, age related changes BC pending UA negative Care coordination following for d/c planning and placement (3) Fall: Code(s): W19.XXXA - Unspecified fall, initial encounter Status: Inactive Assessment and Plan: No acute fractures Fall precautions PT/OT ordered for eval and d/c planning as she currently lives alone (4) Leukocytosis: Code(s): D72.829 - Elevated white blood cell count, unspecified Status: Resolved Assessment and Plan: likely related to covid infection resolved (5) Generalized anxiety disorder: Code(s): F41.1 - Generalized anxiety disorder Status: Chronic Assessment and Plan: continue home Lexapro (6) Common bile duct dilation: Code(s): K83.8 - Other specified diseases of biliary tract Status: Inactive Assessment and Plan: GI consulted - MRCP today showed dilated common bile duct without definite stones or stricture identified. tolerating low fat diet Subjective Date/time seen: 04/09/23 13:11 Interval history: Patient is lying in bed comfortably this morning in no acute distress. She is denying any symptoms or pain. GI cleared her as her MRCP did not show any active stones. Neurology consulted as she likely has dementia that has not been diagnosed or evaluated yet. MRI done today showing no acute process or changes. Care coordination on board for d/c planning as neuro is in agreement that home alone is not a safe option for her. Review of Systems Review of Systems: All systems reviewed & are unremarkable except as noted in HPI and below Exam Narrative: APPEARANCE: No apparent distress. AOx1. Head: atraumatic. EYES: EOMI, PERRLA NECK: Trachea midline, supple RESPIRATORY: lung sounds clear to auscultation. CARDIOVASCULAR: RRR. ABDOMINAL: Non-distended, soft, nontender. BS present. MUSCULOSKELETAl: No obvious deformities. No edema. NEURO: Alert to self only. Cranial nerves 2-12 grossly intact. SKIN:: Warm, dry. No wounds. PSYCHIATRIC: Normal affect. No SI. Objective Data Vital Signs Vital Signs: Vital Signs - 24 hr 04/08/23 14:00 04/08/23 16:00 04/08/23 20:36 Temperature 98 F 96.3 F L Pulse Rate 62 63 58 L Respiratory Rate 16 18 Blood Pressure 167/70 H 166/55 H Pulse Oximetry 100 98 Oxygen Delivery 04/08/23 20:30 04/09/23 00:00 04/09/23 04:57 Temperature 97.1 F L Pulse Rate 55 L 52 L 61 Respiratory Rate 16 Blood Pressure 155/72 H Pulse Oximetry 99 Oxygen Delivery 04/09/23 04:00 04/09/23 08:00 Temperature Pulse Rate 48 L 61 Respiratory Rate 16 Blood Pressure Pulse Oximetry 99 Oxygen Delivery Room Air Intake/Output Intake/Output: Intake & Output 04/06/23 04/07/23 04/08/23 04/09/23 23:59 23:59 23:59 23:59 Intake Total 410 300 500 Balance 410 300 500 Meds/Results Medications: Active Medications Generic Name Dose Route Start Last Admin Trade Name Freq PRN Reason Stop Dose Admin Acetaminophen 650 mg 04/06/23 21:31 04/07/23 20:35 Acetaminophen 325 Mg Tablet PO 650 mg Q4H PRN Administration Mild Pain (1-3) or Fever Amlodipine Besylate 2.5 mg 04/07/23 09:00 04/09/23 08:40 Amlodipine Besylate 2.5 Mg Tablet PO 2.5 mg DAILY ANI Administration [place]
--- NOTE | 2023-04-09 14:11 | PM.DS ---
DS: Admitting Diagnosis Discharge Date 04/09/23 Admitting Diagnosis fall, altered mental status DS: Discharge Diagnosis Discharge Diagnosis (1) COVID: Code(s): U07.1 - COVID-19 Status: Acute Assessment and Plan: non-symptomatic, positive on admission supportive care Chest x-ray negative (2) Altered mental status: Code(s): R41.82 - Altered mental status, unspecified Status: Chronic Assessment and Plan: CT head negative for CVA, showed age-related changes including moderate diffuse volume loss and moderate scattered white matter hypoattenuation consistent with chronic small vessel ischemic disease. Neurology consulted - agrees patient not safe to return home on her own MRI brain showed no acute process, age related changes BC pending - will f/u. UA negative Care coordination following for d/c planning. Family will be staying with her 09/11, approved for [place] as back up plan. (3) Fall: Code(s): W19.XXXA - Unspecified fall, initial encounter Status: Inactive Assessment and Plan: No acute fractures Fall precautions PT/OT ordered for eval and d/c planning as she currently lives alone (4) Leukocytosis: Code(s): D72.829 - Elevated white blood cell count, unspecified Status: Resolved Assessment and Plan: likely related to covid infection resolved (5) Generalized anxiety disorder: Code(s): F41.1 - Generalized anxiety disorder Status: Chronic Assessment and Plan: continue home Lexapro (6) Common bile duct dilation: Code(s): K83.8 - Other specified diseases of biliary tract Status: Inactive Assessment and Plan: GI consulted - MRCP showed dilated common bile duct without definite stones or stricture identified. tolerating low fat diet DS: Summary Hospital Course Hospital Course: Patient is an 82 YO female admitted with chief complaint of fall/AMS. Patient not aware of the events that brought her to the hospital. She never endorsed any physical complaints. Per the family, she was found on the floor of her house covered in feces. She was speaking clearly, but not making much sense. Patient's family states that she has been having a steady decline over the last several years. Patient was found to be covid positive on admission, without symptoms. CXR was negative for acute process. CT head negative for CVA, showed age-related changes including moderate diffuse volume loss and moderate scattered white matter hypoattenuation consistent with chronic small vessel ischemic disease. Neurology consulted, would like to see in 3-4 months. MRI brain showed no acute process, age related changes. BC drawn and still pending. UA negative. MRCP showed dilated common bile duct without definite stones or stricture identified. She is tolerating low fat diet, passing flatus. She is not safe to return home on her own, family assures they will be with her 09/11. AL approved as back up plan as patient is not currently open to not returning home. Status at Discharge Functional status at discharge: independent ambulation Overall status at discharge: patient is not back to baseline Time Spent with Patient Time attestation: Total time spent providing and/or coordinating discharge services: Exam Narrative: APPEARANCE: No apparent distress. AOx1. Head: atraumatic. EYES: EOMI, PERRLA NECK: Trachea midline, supple RESPIRATORY: lung sounds clear to auscultation. CARDIOVASCULAR: RRR. ABDOMINAL: Non-distended, soft, nontender. BS present. MUSCULOSKELETAl: No obvious deformities. No edema. NEURO: Alert to self only. Cranial nerves 2-12 grossly intact. SKIN:: Warm, dry. No wounds. PSYCHIATRIC: Normal affect. No SI. DS: Data Data Completed and Pending Labs on day of discharge: Labs from last 24 hours 04/09/23 06:30 WBC 5.6 RBC 4.32 Hgb 12.5 Hct 37.3 MCV 86.3 MCH 28.9 MCHC 33.5 RDW 13.0 Plt
[2023-04-09 14:27] LABS: Potassium 3.4 mmol/L (3.4-5.0)
[2023-04-09 14:51] LABS: SARS-CoV-2 RNA PCR Positive (Negative)
== END 2023-04-09 16:14 | disposition home or self-care (01) | DRG 178 ==
PROVIDERS: Student in an Organized Health Care Education/Training Program; Admitting Provider Student in an Organized Health Care Education/Training Program; PCP Nurse Practitioner Family; Visit Provider Nurse Practitioner
DX: U07.1 COVID-19 (principal); G93.40 Encephalopathy, unspecified; M62.82 Rhabdomyolysis; I10 Essential (primary) hypertension; E78.5 Hyperlipidemia, unspecified; E53.8 Deficiency of other specified B group vitamins; K83.8 Other specified diseases of biliary tract; F32.A Depression, unspecified; F03.90 Unspecified dementia, unspecified severity, without behavioral disturbance, psychotic disturbance, mood disturbance, and anxiety; F41.1 Generalized anxiety disorder; Z85.3 Personal history of malignant neoplasm of breast
CPT/HCPCS: 36415; 70551; 74183; 76376; 80048; 80053; 82550; 82607; 82746; 83735; 84132; 84443; 85025; 85027; 87635; 97161; 97165; A9270; A9577; J1644; J3480; J7040